=== PATIENT | female | born 1980 ===

== ENCOUNTER 2017-02-15 16:23 | Emergency (ER) | payer OTHER ==
[~2017-02-15] VITALS: Ht 162.6 cm; Wt 58.0 kg
[2017-02-15 16:29] VITALS: BP 112/70; PULSE 89; RESP 22; TEMP 98.7; O2SAT 95
== END 2017-02-15 21:08 | disposition left against medical advice (07) ==
LOC: NED 16:23
DX: R11.10 Vomiting, unspecified (principal)
CPT/HCPCS: 99281